=== PATIENT | female | born 1965 | race Caucasian/White ===

== ENCOUNTER 2017-04-29 20:28 | Emergency (ER) | payer SELFPAY ==
[~2017-04-29] VITALS: Ht 157.5 cm; Wt 50.8 kg
[2017-04-29] MEDS ORDERED: NITROGLYCERIN 0.4 MG/TAB BOTTLE SL ONE ×2 (20:45→21:22)
[2017-04-29] MEDS ORDERED: IV NORMAL SALINE 500 ML BAG IV ONE (20:45)
[2017-04-29] MEDS ORDERED: ASPIRIN 325 MG TABLET PO ONE (20:45)
[2017-04-29 20:56] LABS: BASOPHILS # (AUTO) 0.1 K/uL (0.0-8.0); BASOPHILS % (AUTO) 0.7 % (0.0-2.0); EOSINOPHILS # (AUTO) 0.4 K/uL (0.0-0.7); EOSINOPHILS % (AUTO) 5.3 % (0.0-7.0); HEMATOCRIT 47.1 % (37-47); HEMOGLOBIN 15.8 G/DL (12.0-16.0); LYMPHOCYTES # (AUTO) 3.9 K/UL (0.8-4.8); LYMPHOCYTES % (AUTO) 46.6 % (20.5-51.5); MEAN CORPUSCULAR HEMOGLOBIN 31.1 UUG (27.0-31.0); MEAN CORPUSCULAR HGB CONC 34 g/dL (32.0-37.0); MEAN CORPUSCULAR VOLUME 92.6 FL (81.0-99.0); MONOCYTES # (AUTO) 0.5 K/UL (0.1-1.30); MONOCYTES % (AUTO) 5.6 % (0.0-11.0); NEUTROPHILS # (AUTO) 3.5 K/UL (1.8-8.9); NEUTROPHILS % (AUTO) 41.8 % (38.5-71.5); PLATELET COUNT (AUTO) 236 K/UL (150-450); RED BLOOD CELL COUNT(AUTO) 5.09 MIL/UL (4.2-5.4); WHITE BLOOD COUNT (AUTO) 8.4 K/UL (4.0-11.2)
[2017-04-29 21:08] LABS: *URINE HCG, QUAL NEGATIVE (NEGATIVE)
[2017-04-29] MEDS ORDERED: ASPIRIN 325 MG TABLET ONE (21:22)
[2017-04-29 21:40] LABS: CREATININE 0.8 mg/dL (0.6-1.3); POTASSIUM 3.5 mmol/L (3.5-5.1)
--- NOTE | 2017-04-29 22:19 | NUR ---
Patient discharged to home in stable conditon. Written and verbal after care instructions given. Patient verbalizes understanding of instructions. Ambulated from ER with stable gait. Peripheral IV removed prior to dischrage. All belongings taken home with patient.
[2017-04-29 22:23] VITALS: BP 125/71
== END 2017-04-29 22:23 | disposition home or self-care (01) ==
LOC: ER 20:29
DX: R07.89 Other chest pain (principal); F17.210 Nicotine dependence, cigarettes, uncomplicated
CPT/HCPCS: 36415; 71010; 80048; 83880; 84484; 84703; 85025; 85730; 93005; 96360; 99285; A4663; J7040; 70030-TC

== ENCOUNTER 2025-02-23 20:43 | Emergency (ER) | payer SELFPAY ==
[~2025-02-23] VITALS: Ht 157.5 cm; Wt 54.4 kg
[2025-02-23 20:46] VITALS: BP 111/65
[2025-02-23] MEDS ORDERED: IV NORMAL SALINE 1000 ML BAG IV ONE (21:30)
[2025-02-23] MEDS ORDERED: HYDROMORPHONE 1 MG/1 ML DISP.SYRIN IV ONE (21:30)
[2025-02-23] MEDS ORDERED: ONDANSETRON 4 MG/2 ML VIAL IV ONE (21:30)
[2025-02-23 21:37] LABS: PLATELET COUNT (AUTO) 190 K/uL (179-408); RED BLOOD CELL COUNT(AUTO) 4.38 MIL/uL (3.63-4.92); RED CELL DISTRIBUTION WIDTH 13.2 % (12.3-17.7); WHITE BLOOD COUNT (AUTO) 6.5 K/uL (3.8-11.8)
[2025-02-23 21:51] LABS: CREATININE 0.5 mg/dL (0.6-1.3); SODIUM SERUM 141.0 mmol/L (136-145); UREA NITROGEN, BLOOD 10.0 mg/dL (7-18)
[2025-02-23 21:57] LABS: ASPARTATE AMINOTRANSFERASE 13.0 U/L (15-37); TOTAL PROTEIN, SERUM 6.5 g/dL (6.4-8.2)
[2025-02-23 22:25] LABS: *BILIRUBIN,URIN NEGATIVE (NEGATIVE); *BLOOD, URINE NEGATIVE (NEGATIVE); *CLARITY,URINE CLEAR (CLEAR); *COLOR,URINE YELLOW (YELLOW); *KETONES,URINE NEGATIVE (NEGATIVE); *PROTEIN,URINE NEGATIVE (NEGATIVE); *UROBILINOGEN,URINE 0.2 E.U./dl (NORMAL); LEUKOCYTE ESTERASE ,URINE NEGATIVE (NEGATIVE); NITRITE, URINE NEGATIVE (NEGATIVE); UGLUCOSE NEGATIVE (NEGATIVE)
[2025-02-23] MEDS ORDERED: HYDR-4209 PO (22:56)
[2025-02-23] MEDS ORDERED: ONDA4TAB11 PO (22:56)
[2025-02-23] MEDS ORDERED: HYDROCODONE/APAP 5-325MG TABLET ONE (23:03)
[2025-02-23] MEDS ORDERED: ONDANSETRON ODT 4 MG TAB.RAPDIS ONE (23:03)
[2025-02-23] MEDS: HYDROCODONE/APAP 5-325MG TABLET PO ONE (23:05)
[2025-02-23] MEDS: ONDANSETRON ODT 4 MG TAB.RAPDIS SL ONE (23:05)
[2025-02-23 23:59] VITALS: BP 108/68; O2SAT 98
== END 2025-02-23 23:13 | disposition home or self-care (01) ==
LOC: ER 20:43
DX: M54.50 Low back pain, unspecified (principal); F12.90 Cannabis use, unspecified, uncomplicated; F19.10 Other psychoactive substance abuse, uncomplicated; Z87.440 Personal history of urinary (tract) infections; Z88.0 Allergy status to penicillin; Z88.2 Allergy status to sulfonamides
CPT/HCPCS: 36415; 83690; 85025; A4606; A4663; Q0162